=== PATIENT | female | born 1990 | race Caucasian/White ===

== ENCOUNTER 2019-06-23 11:30 | Inpatient (IN) | payer MEDICAID, SELFPAY ==
[2019-06-23 12:03] VITALS: BMI 28.5
[2019-06-23] MEDS: 0.9% Saline Lock 10 ML Syringe IV (13:00)
[2019-06-23 13:36] LABS: Absolute Lymphocyte Count 1.27 X10^3/uL (0.83-4.51); Absolute Neutrophil Count 14.3 X10^3/uL (2.0-7.7); Basophil# 0.04 X10^3/uL; Basophil% 0.2 % (0-1); Eosinophil# 0.03 X10^3/uL; Eosinophils% 0.2 % (0-5); Hematocrit 34.6 % (37-47); Hemoglobin 11.3 g/dL (12.0-15.0); Lymphocyte # 1.27 X10^3/ul (4.0); Lymphocyte % 7.8 % (19-41); Mean Corp Hgb Conc 32.7 g/dL (32-36); Mean Corpuscular Hgb 27.5 pg (27.0-32.0); Mean Corpuscular Volume 84.2 fL (81-99); Mean Platelet Vol. 12.1 fl (6.2-12.0); Monocyte# 0.62 X10^3/uL; Monocyte% 3.8 % (0-10); NRBC Flagged by Analyzer 0 % (0-5); Neutrophil % 87.4 % (47-70); Platelet Count 234 K/mm3 (150-450); RBC Distribution Width CV 15.1 % (11.6-14.6); RBC Distribution Width SD 46.3 fl (35.1-43.9); Red Blood Count 4.11 M/mm3 (4.2-5.4); White Blood Count 16.4 K/mm3 (4.4-11.0)
--- NOTE | 2019-06-23 20:32 | PCM.HP.OB ---
History Date of Admission: 06/23/19 Final ASMITA: 06/17/19 Gestational age: 40 Weeks and 6 Days History of this : This is a 28 year-old, @ 40 6/7 weeks presents in labor. No VB/LOF. Good FM. Allergies No Known Allergies Allergy (Verified 06/23/19 12:25) Home Medications: Home Medications Ergocalciferol [Vitamin D] 50,000 unit PO Q7D 06/23/19 Lysine 500 mg PO 06/23/19 Magnesium 250 mg PO 06/23/19 Selenium 100 mcg PO 06/23/19 Vitamin B Complex 1 ea PO 06/23/19 Vitamin K2 40 mcg PO 06/23/19 Smoking Status: Never smoker Number of Fetus(es): 1 NST - FHR Rate Baby A Baseline: normal History Past Pregnancies: Past Pregnancies Delivery Date Name GA/Weeks Outcome Route Weight Gender Labor Length Anesthesia Delivery Location Provider FOB Expected Delivery Method: Spontaneous Vaginal Review of Systems Constitutional: Denies: Chills, Fever Cardiovascular: Denies: Chest Pain Respiratory: Denies: Cough Neurological: Denies: Balance problems, Blurred vision Physical Exam General: Alert, Cooperative, No apparent distress Cardiovascular: Regular rate Lungs: Normal air movement Abdomen: Soft, Non-Distended, Gravid Extremities:: Other - 2+edema [employer] WORKER: Normal external genitalia Estimated gestational size: Appropriate for gestational size Presentation: Cephalic Assessment/Plan This is a 28 year-old, G1 @ 40 6/7 WEEKS GESTATION IN LABOR. EFW <4500 GM clinically, pelvis clinically adequate to expect vaginal delivery. GBS neg. Declines interventions for pain or for augmentation of labor. At this point labor has been progressing normally. Now SROM w/ MSF. Will notify peds for delivery. Continue expectant management for vaginal delivery. May have epidural/nubain/NO if desires.
--- NOTE | 2019-06-23 22:00 | NURSING ---
pt declined pitocin after delivery. aware
--- NOTE | 2019-06-23 22:28 | PCM.OPRPT ---
Vaginal Delivery Maternal Presentation: Active Labor Amniotic Membrane Rupture Type: Spontaneous Amniotic Fluid Description: Thick meconium Final ASMITA: 06/17/19 Final ASMITA Source: US <20 weeks Gestational age: 40 Weeks and 6 Days Date of Procedure: 06/23/19 Pre-Operative Diagnosis: labor Post-Operative Diagnosis: same Surgery/ Procedure Performed: Spontaneous Vaginal Delivery Type of Anesthesia: Local with 1% lidocaine - 20 cc Description of Procedure: A vigorous female infant was delivered JEFF over a second-degree perineal laceration. The remainder the was delivered with maternal pushing and gentle traction only in less than 15 seconds. Patient declined Pitocin infusion. She declined intramuscular Pitocin. The cord was clamped and cut after pulsations stopped. The was attended to by the waiting nursing staff. The placenta was delivered spontaneously and intact. The cervix and vagina were intact. 20 cc of 1% lidocaine were used to inject locally. The second-degree perineal laceration was repaired with 3-0 Vicryl suture in a running standard fashion. Sponge and needle counts were correct. A vaginal sweep was completed by me. Presentation: JEFF Placental Delivery Description: Spontaneous Placenta Disposition: [facility] Cord Vessel Description: 3 Vessels Cord Entanglement: None Drain: - - none Estimated Blood Loss: 300 Infant A gender: Female - Name: Liz (1 minute): 8 (5 minute): 9
[2019-06-24 04:05] VITALS: BP 106/62; PULSE 82; RESP 16; TEMP 36.3; O2SAT 96
--- NOTE | 2019-06-24 07:26 | PCM.PN.OB ---
Subjective: Denies complaints - Physical Exam General: Alert, Oriented x3 Abdomen: Soft, Non Tender, Non-Distended - ff mid & below umb Extremities: No Calf Tenderness Vital Signs Temp Pulse Resp BP Pulse Ox 97.3 F L 82 16 106/62 96 06/24/19 04:05 06/24/19 04:05 06/24/19 04:05 06/24/19 04:05 06/24/19 04:05 Oxygen Delivery Method Room Air Weight: 166 lb Body Mass Index (BMI) 28.5 Intake and Output for Last 24 Hours 06/22/19 06/23/19 06/24/19 23:59 23:59 23:59 Intake Total 1500 / 1500 Output Total 300 / 300 Balance 1500 / 1500 -300 / -300 Laboratory Tests Past 24 Hrs 06/23/19 06/23/19 13:15 13:15 WBC 16.4 H RBC 4.11 L Hgb 11.3 L Hct 34.6 L MCV 84.2 MCH 27.5 MCHC 32.7 RDW Std Deviation 46.3 H RDW Coeff of Cholo 15.1 H Plt Count 234 MPV 12.1 H Immature Gran % (Auto) 0.600 Neut % (Auto) 87.4 H Lymph % (Auto) 7.8 L Mccreary % (Auto) 3.8 Eos % (Auto) 0.2 Baso % (Auto) 0.2 Absolute Neuts (auto) 14.3 H Absolute Lymphs (auto) 1.27 Nucleated RBC % 0 Blood Type O POSITIVE Antibody Screen NEGATIVE Medical Necessity - Tobacco Use Smoking Status: Never smoker Assessment/Plan PPD#1 Routine care
[2019-06-24 08:00] VITALS: BP 111/53; PULSE 83; RESP 16; TEMP 36.5
[2019-06-24 12:00] VITALS: BP 110/71; PULSE 86; RESP 20; TEMP 36.1
[2019-06-24 16:30] VITALS: BP 125/78; PULSE 102; RESP 16; TEMP 36.3
[2019-06-24 20:26] VITALS: BP 121/68; PULSE 91; RESP 18; TEMP 36.2; O2SAT 98
--- NOTE | 2019-06-24 20:28 | NURSING ---
Patient refusing fundal check at this time. Patient educated on importance of fundal checks. Patient verbalizes understanding.
[2019-06-25 02:00] VITALS: BP 109/73; PULSE 66; RESP 16; TEMP 36.5
[2019-06-25 08:00] VITALS: BP 106/61; PULSE 61; RESP 16; TEMP 36.2; O2SAT 98
--- NOTE | 2019-06-25 08:35 | PCM.PN.OB ---
Subjective: pt seen at bedside, well. Patient denies any concerns at this time. Mild lochia. Voiding without difficulty. Breast-feeding going well. - Physical Exam General: Alert, Oriented x3 Abdomen: Soft, Non Tender, - - fundus firm Extremities: No Calf Tenderness Vital Signs Temp Pulse Resp BP Pulse Ox 97.7 F L 66 16 109/73 98 06/25/19 02:00 06/25/19 02:00 06/25/19 02:00 06/25/19 02:00 06/24/19 20:26 Oxygen Delivery Method Room Air Weight: 75.296 kg Body Mass Index (BMI) 28.5 Intake and Output for Last 24 Hours 06/23/19 06/24/19 06/25/19 23:59 23:59 23:59 Intake Total 1500 / 1500 Output Total 300 / 300 Balance 1500 / 1500 -300 / -300 Medical Necessity - Tobacco Use Smoking Status: Never smoker Assessment/Plan day #2, doing well Routine care RI home
--- NOTE | 2019-06-25 08:37 | DCINST_ITS ---
Discharge Diet: No Restrictions Discharge Activity: Return to Normal Activity, May not drive while taking narcotic pain medications., May Shower May resume sexual activity in: 4-6 weeks Additional Activity Instructions:: Nothing in the vagina for 4-6 weeks. You may return to work/school in 6 weeks. Call your doctor if your incision/area has: Continuous Slow Oozing, Sudden Increased Bleeding, Increased Pain/ Swelling, Increased Redness, Foul Smelling Discharge Additional Instructions: If you experience any of the following, contact your healthcare provider. * Bleeding that soaks a pad every hour for 2 hours * Fever 100.4 or higher * Unrelieved incision or abdominal pain * Swelling, redness, discharge or bleeding from your incision or episiotomy site * Your incision begins to separate * Problems urinating (including inability to urinate or burning while urinating). * Visual changes * Severe headache * Flu-like symptoms * Pain or redness in one of both of your breasts * Pain, warmth, tenderness or swelling in your legs, especially the calf area * Frequent nausea and vomiting * Symptoms of depression or anxiety If you experience any of the following, call 911 or go to the nearest Emergency Room. * Chest pain * Problems breathing * Seizure activity * Partial or complete paralysis of a body part, slurred speech, weakness or drooping of the face, or a sudden inability to walk or hold your balance Allergies/Adverse Reactions: Allergies No Known Allergies Allergy (Verified 06/23/19 12:25) Medications to take at Discharge Ergocalciferol [Vitamin D] 50,000 unit PO Q7D 06/23/19 Lysine 500 mg PO 06/23/19 Magnesium 250 mg PO 06/23/19 Selenium 100 mcg PO 06/23/19 Vitamin B Complex 1 ea PO 06/23/19 Vitamin K2 40 mcg PO 06/23/19 Naproxen [Naprosyn] 500 mg PO Q8H PRN PRN #30 tab 06/25/19 The following prescriptions were given: Naproxen [Naprosyn] 500 mg PO Q8H PRN PRN #30 tab PRN Reason: Mild Pain (-12/20) Transmission Status: Pending to [id number] When: Call to make an appointment with your doctor in 6 weeks. If you had elevated Blood Pressure or 4th degree laceration you will need to be seen in 2 weeks. Primary Care Physician: Care Physician,No Primary [Primary Care Provider] - Test Results: Test results from this visit will be discussed in further detail at your follow- up appointment, if applicable.
== END 2019-06-25 12:15 | disposition home or self-care (01) | DRG 560 ==
PROVIDERS: Admitting Provider Obstetrics & Gynecology; Referring Provider Obstetrics & Gynecology; Visit Provider Obstetrics & Gynecology
DX: O77.0 Labor and delivery complicated by meconium in amniotic fluid (principal); O70.1 Second degree perineal laceration during delivery; Z37.0 Single live birth; Z3A.40 40 weeks gestation of pregnancy
CPT/HCPCS: 59025; 59050; 85025; 86850; 86900; 86901; 99218; A4216; G0378

== ENCOUNTER → 2021-03-08 09:32 | Outpatient (CLI) | payer MEDICAID, SELFPAY ==
[2021-03-08 08:29] VITALS: BMI 28.5
[2021-03-08 10:03] LABS: Absolute Lymphocyte Count 1.62 X10^3/uL (0.83-4.51); Absolute Neutrophil Count 6.1 X10^3/uL (2.0-7.7); Basophil# 0.05 X10^3/uL; Basophil% 0.6 % (0-1); Eosinophil# 0.38 X10^3/uL; Eosinophils% 4.4 % (0-5); Hematocrit 38.5 % (37-47); Lymphocyte # 1.62 X10^3/ul (0.83-4.51); Lymphocyte % 18.7 % (19-41); Mean Corp Hgb Conc 33.8 g/dL (32-36); Mean Corpuscular Hgb 31.9 pg (27.0-32.0); Mean Corpuscular Volume 94.6 fL (81-99); Mean Platelet Vol. 10.3 fl (6.2-12.0); Monocyte# 0.55 X10^3/uL; Monocyte% 6.3 % (0-10); NRBC Flagged by Analyzer 0 % (0-5); Neutrophil # 6.05 X10^3/uL (2.7-7.7); Neutrophil % 69.8 % (47-70); POSITIVE MORPHOLOGY YES; Platelet Count 241 K/mm3 (150-450); RBC Distribution Width SD 44.8 fl (35.1-43.9); Red Blood Count 4.07 M/mm3 (4.2-5.4); White Blood Count 8.7 K/mm3 (4.4-11.0)
[2021-03-08 10:06] LABS: Differential Indicated SCAN CRITERIA MET
[2021-03-08 10:46] LABS: Rubella IgG Reactive (Nonreactive)
[2021-03-12 05:06] LABS: Chlamydia By Nucleic Acid AMP Negative (Negative)
[2021-03-12 07:16] LABS: Gonococcus By Nucleic Acid AMP Negative (Negative)
== END ==
PROVIDERS: Referring Provider Obstetrics & Gynecology; Visit Provider Obstetrics & Gynecology
DX: Z34.80 Encounter for supervision of other normal pregnancy, unspecified trimester (principal)
CPT/HCPCS: 36415; 85025; 86762; 86850; 86900; 86901; 87086; 87088; 87491; 87591

== ENCOUNTER → 2021-05-03 13:57 | Outpatient (CLI) | payer MEDICAID, SELFPAY ==
[2021-04-05 13:53] VITALS: BMI 28.5
[2021-05-03 11:41] VITALS: BMI 23.6
--- NOTE | 2021-05-03 14:02 | US_ITS ---
STUDY: SECOND AND THIRD TRIMESTER OBSTETRICAL ULTRASOUND REASON FOR EXAM: Female, 30 years old anatomy LMP: 12/20/2020. TECHNIQUE: Transabdominal and Transvaginal TECHNICAL QUALITY: Adequate. PRIOR ULTRASOUND: None. FINDINGS: There is a single intrauterine fetus. The fetus is in a cephalic presentation. There is demonstrated cardiac activity with a heart rate of 157 bpm. There is a normal amniotic fluid volume. The largest amniotic fluid pocket measures 4 cm. The amniotic fluid index (DWAIN) is within normal limits. The placenta is anterior in location and is not low lying. There are Grade 0 placental changes. The cervix measures 4.2 cm in length. The adnexal regions are not visualized. BIOMETRY: BPD: 4.59 cm: 19 weeks, 6 days HC: 16.73 cm: 19 weeks, 2 days AC: 13.94 cm: 19 weeks, 2 days FL: 3.08 cm: 19 weeks, 3 days CI: 81% FL/BPD: 67% FL/HC: FL/AC: 22% HC/AC: 1.2 age by current US: 19 weeks, 2 days. ASMITA by current US: 09/25/2021. Estimated weight: 296 grams, +/- 44 grams, 65 %. Age by LMP: 19 weeks, 1 days. ASMITA by LMP: 09/26/2021. ANATOMY: Gender: Male Cranium: Normal lateral ventricles. Normal choroid plexus. Normal cerebellum. Normal cisterna magna. Normal face, nose and lips. Chest: Normal 4-chamber heart. Abdomen/Pelvis: Normal diaphragm. Normal stomach. Normal abdominal wall. Normal cord insertion. Normal 3 vessel cord. Normal kidneys. Normal bladder. Spine: Normal cervical spine. Normal thoracic spine. Normal lumbar spine. Normal sacrum. Extremities: Normal bilateral upper extremities. Normal bilateral lower extremities. US/OB Anatomy Scan IMPRESSION: Single live uterine gestation with a mean gestational age of 19 weeks and 2 days. Electronically Signed: Danyel Bishop MD at 15:50 EDT , Service support ,
== END ==
PROVIDERS: Referring Provider Obstetrics & Gynecology; Visit Provider Obstetrics & Gynecology
DX: Z34.80 Encounter for supervision of other normal pregnancy, unspecified trimester (principal)
CPT/HCPCS: 76805; 76817

== ENCOUNTER → 2021-06-27 11:47 | Outpatient (CLI) | payer MEDICAID, SELFPAY ==
[2021-06-27 11:58] LABS: Absolute Lymphocyte Count 1.87 X10^3/uL (0.83-4.51); Absolute Neutrophil Count 7.4 X10^3/uL (2.0-7.7); Basophil# 0.04 X10^3/uL; Basophil% 0.4 % (0-1); Eosinophil# 0.12 X10^3/uL; Eosinophils% 1.2 % (0-5); Hemoglobin 11.2 g/dL (12.0-15.0); Lymphocyte # 1.87 X10^3/ul (0.83-4.51); Lymphocyte % 18.2 % (19-41); Mean Corpuscular Hgb 30.3 pg (27.0-32.0); Mean Corpuscular Volume 94.6 fL (81-99); Mean Platelet Vol. 10.5 fl (6.2-12.0); Monocyte# 0.68 X10^3/uL; Monocyte% 6.6 % (0-10); NRBC Flagged by Analyzer 0 % (0-5); Neutrophil # 7.41 X10^3/uL (2.7-7.7); Neutrophil % 72.1 % (47-70); Platelet Count 205 K/mm3 (150-450); RBC Distribution Width CV 12.7 % (11.6-14.6); RBC Distribution Width SD 43.8 fl (35.1-43.9); White Blood Count 10.3 K/mm3 (4.4-11.0)
== END ==
PROVIDERS: Referring Provider Obstetrics & Gynecology; Visit Provider Obstetrics & Gynecology
DX: Z34.80 Encounter for supervision of other normal pregnancy, unspecified trimester (principal)
CPT/HCPCS: 36415; 85025

== ENCOUNTER → 2021-08-07 15:59 | Outpatient (CLI) | payer MEDICAID, SELFPAY ==
[2021-08-07 17:05] LABS: ALB/GLOB Ratio 0.6 RATIO (0.9-2.4); AST(SGOT) 18 U/L (15-37); Alanine Aminotransfer ALT/SGPT 21 U/L (13-56); Albumin, Serum 2.8 g/dL (3.2-5.0); Alkaline Phosphatase 126 U/L (45-117); Anion Gap 12 (5-15); BUN 9 mg/dL (7-18); Calcium,Total 8.4 mg/dL (8.5-10.1); Chloride 102 mmol/L (98-107); Creatinine, Serum 0.53 mg/dL (0.55-1.02); EST Glomerular Filtration Rate 142 mL/min (>60); Est Glom Filt Rate - Afr Amer 172 mL/min (>60); Globulin 4.6 g/dL (2.2-4.2); Glucose 93 mg/dL (74-106); Potassium 3.2 mmol/L (3.5-5.1); Protein, Total 7.4 g/dL (6.4-8.2); Sodium Level 137 mmol/L (136-145)
== END ==
PROVIDERS: Referring Provider Nurse Practitioner Women's Health; Visit Provider Nurse Practitioner Women's Health
DX: L50.9 Urticaria, unspecified (principal)
CPT/HCPCS: 36415; 80053

== ENCOUNTER → 2021-08-17 12:11 | Outpatient (CLI) | payer MEDICAID, SELFPAY ==
[2021-08-17 13:42] LABS: ALB/GLOB Ratio 0.5 RATIO (0.9-2.4); AST(SGOT) 16 U/L (15-37); Alanine Aminotransfer ALT/SGPT 18 U/L (13-56); Albumin, Serum 2.2 g/dL (3.2-5.0); Alkaline Phosphatase 121 U/L (45-117); Anion Gap 6 (5-15); BUN 7 mg/dL (7-18); BUN/Creat Ratio 12.9 RATIO (10-20); Calcium,Total 8.5 mg/dL (8.5-10.1); Chloride 106 mmol/L (98-107); Creatinine, Serum 0.54 mg/dL (0.55-1.02); EST Glomerular Filtration Rate 138 mL/min (>60); Est Glom Filt Rate - Afr Amer 167 mL/min (>60); Globulin 4.2 g/dL (2.2-4.2); Glucose 68 mg/dL (74-106); Potassium 3.6 mmol/L (3.5-5.1); Protein, Total 6.4 g/dL (6.4-8.2); Sodium Level 137 mmol/L (136-145)
== END ==
PROVIDERS: Referring Provider Obstetrics & Gynecology; Visit Provider Obstetrics & Gynecology
DX: O26.619 Liver and biliary tract disorders in pregnancy, unspecified trimester (principal); K83.1 Obstruction of bile duct; Z3A.00 Weeks of gestation of pregnancy not specified
CPT/HCPCS: 36415; 80053

== ENCOUNTER → 2021-08-31 | Outpatient (CLI) | payer MEDICAID, SELFPAY | END | disposition home or self-care (01) | LOC: LABSPEC 14:08 | PROVIDERS: Visit Provider Obstetrics & Gynecology | DX: Z34.93 Encounter for supervision of normal pregnancy, unspecified, third trimester (principal) | CPT/HCPCS: 87077; 87081 ==

== ENCOUNTER → 2021-09-14 18:35 | Outpatient (CLI) | payer MEDICAID, SELFPAY ==
--- NOTE | 2021-09-14 18:36 | US_ITS ---
HISTORY: uterine size/date discrepancy EXAMINATION: US OB Limited 1 Or More Fetus TECHNIQUE: Transabdominal pelvic ultrasound was performed. Grayscale, spectral waveform, and color flow Doppler evaluation of the adnexa. COMPARISON: 05/03/21 with ASMITA 09/26/21 LMP: 12/20/20. Beta-hCG: Unknown. Provided EGA: 38 weeks 2 days. FINDINGS: INTRAUTERINE GESTATION(s): Single. ESTIMATED GESTATIONAL AGE: 37 weeks 2 days. ESTIMATED DUE DATE (ASMITA): 10/03/21. HEART MOTION is 166 bpm. AMNIOTIC FLUID INDEX (DWAIN): 10.2 cm. ESTIMATED WEIGHT: 3192 g or 7 lbs. 1 oz.. Percentile 41st%. BIOPHYSICAL PROFILE (BPP): not assessed. PRESENTATION: cephalic. PLACENTA: anterior. There is no placenta previa or abruption. CERVIX: The cervix is closed. Cervical length 2.0 cm US/OB Limited With Biometrics IMPRESSION: Single live intrauterine of 37 weeks 2 days. Concordant interval growth compared to prior study. at 2210 Reported and signed by: Rordi Tsang MD Electronically Signed: Rodri Tsang MD at 22:09 EST Tel , Service support ,
== END ==
PROVIDERS: PCP Family Medicine; Visit Provider Obstetrics & Gynecology
DX: O26.843 Uterine size-date discrepancy, third trimester (principal); Z3A.00 Weeks of gestation of pregnancy not specified
CPT/HCPCS: 76816

== ENCOUNTER 2021-09-26 06:30 | Inpatient (IN) | payer MEDICAID, SELFPAY ==
[2021-03-08 08:29] VITALS: BMI 28.5
[2021-09-26] VITALS (23 sets, daily range): BP systolic 84–131; BP diastolic 51–85; PULSE 67–95; RESP 15–18; TEMP 36.4–37.3; O2SAT 97–99; BMI 26.5
[2021-09-26] MEDS: 0.9% Saline Lock 10 ML Syringe IV (06:40)
[2021-09-26 06:55] LABS: Absolute Lymphocyte Count 3.73 X10^3/uL (0.83-4.51); Absolute Neutrophil Count 9.7 X10^3/uL (2.0-7.7); Basophil# 0.06 X10^3/uL; Basophil% 0.4 % (0-1); Eosinophil# 0.11 X10^3/uL; Eosinophils% 0.7 % (0-5); Hematocrit 35.5 % (37-47); Hemoglobin 11.2 g/dL (12.0-15.0); Lymphocyte # 3.73 X10^3/ul (0.83-4.51); Lymphocyte % 25.2 % (19-41); Mean Corp Hgb Conc 31.5 g/dL (32-36); Mean Corpuscular Hgb 26.5 pg (27.0-32.0); Mean Corpuscular Volume 83.9 fL (81-99); Monocyte# 0.97 X10^3/uL; Monocyte% 6.5 % (0-10); NRBC Flagged by Analyzer 0 % (0-5); Neutrophil # 9.67 X10^3/uL (2.7-7.7); Neutrophil % 65.4 % (47-70); Platelet Count 269 K/mm3 (150-450); RBC Distribution Width CV 14.5 % (11.6-14.6); RBC Distribution Width SD 43.8 fl (35.1-43.9); Red Blood Count 4.23 M/mm3 (4.2-5.4); White Blood Count 14.8 K/mm3 (4.4-11.0)
--- NOTE | 2021-09-26 07:09 | HP.PCM.OB_ITS ---
HPI - General General Date of Admission: 09/26/21 HPI Narrative MONTY MIXON, is a 30 F who presentsIAL and delivers precipitously without complication Maternal Data Information ASMITA Calculator Estimated Delivery Date Method Current WG Current Estimate 09/26/21 LMP (Certain) 40w 0d Other Estimates 09/20/21 Ultrasound #1 40w 6d PFSH PFSH Medical History Positive GBS test Home Medications ergocalciferol (vitamin D2) 50,000 unit PO Q7D 06/23/19 [History Last Taken Unknown] magnesium 250 mg PO 06/23/19 [History Last Taken Unknown] vitamin B complex 1 ea PO 06/23/19 [History Last Taken Unknown] vitamin K2 40 mcg PO 06/23/19 [History Last Taken Unknown] ursodiol 300 mg capsule 300 mg PO BID #60 cap 08/13/21 [Rx Last Taken Unknown] Allergy/AdvReac Type Severity Reaction Status Date / Time No Known Allergies Allergy Verified 09/26/21 06:13 Family History Grandfather Cancer lung Grandmother CVA (cerebral vascular accident) Diabetes Grandmother CVA (cerebral vascular accident) Hypertension Social History Smoking Status: Never smoker History 2 Elective abortions Hx Para 1 Spontaneous abortions Hx # Term Pregnancies Ectopic pregnancies Hx # Pregnancies Multiple births # of living children Past Pregnancies Del. Date Name GA/Weeks Outcome Route Bth Weight Infant Gen [facility] 06[facility]23/19 Liz 41 live - full term 6# 14 oz Female 20 hr no ne Eldoradolaura Morales Delivery Date: 06/23/19 1 degree tear Umm Prado Visit Details Expected Delivery Route/Plan Labor Preferences labor support person: alcides Jerez- planning deja labor intervention preferences: avoid arom and pitocin if able including post delivery pitocin. pain management options preferred: minimal intervention, IA, prefer cut cord/dad catch: no : yes PP control planned: nfp discussed possible routes of delivery and associated risks: [] special requests: [] Plans covid status: non immune counseled regarding risk of covid in vs vaccination and declined vaccination flu vaccine: declined tdap vaccine: declined rhogam: na LARC form signed: 06/27 - declines movement and labor precautions reviewed. Problem list reviewed and updated with the most current plan of care details and appropriate orders placed. Relevant counseling for the gestational age provided. Continue routine care and follow up unless otherwise noted in visit notes/problem list details OB Flowsheet Initial Weight: 130 lb Date -?-?-?-?-?-?-?-?-?-?-?-?- EGA Weight BP Urine Prot -?-?-?-?-?-?-?-?-?-?-?-?- Glucose FHR FuHt Pres Dilation -?-?-?-?-?-?-?-?-?-?-?-?- Effaced St Visit Note 03/08/21 -?-?-?-?-?-?-?-?-?-?-?-?- 11w 1d 129 lb (-16 oz) 100/68 -?-?-?-?-?-?-?-?-?-?-?-?- 160 -?-?-?-?-?-?-?-?-?-?-?-?- GP - CRL 47mm co nsistent with LMP. 04/05/21 -?-?-?-?-?-?-?-?-?-?-?-?- 15w 1d 134 lb (+4 lb) 100/64 Negative -?-?-?-?-?-?-?-?-?-?-?-?- Negative 150 -?-?-?-?-?-?-?-?-?-?-?-?- SM- no vb crampi ng 05/03/21 -?-?-?-?-?-?-?-?-?-?-?-?- 19w 1d 138 lb (+8 lb) 92/62 -?-?--?-?-?-?-?-?-?-?-?-?- 150 -?-?-?-?-?-?-?-?-?-?-?-?- SM- no vb crampi ng doing well. 05/31/21 -?-?-?-?-?-?-?-?-?-?-?-?- 23w 1d 142 lb (+12 lb) 104/58 Negative -?-?-?-?-?-?-?-?-?-?-?-?- Negative 150 23 -?-?-?-?-?-?-?-?-?-?-?-?- GP - no ctx, LOF , VB, Plan home BGT monitor instead of GCT. CBC next visit. GP - no ctx, LOF, VB, Plan h ome BGT monitor instead of GCT. CBC next visit. Discussed management of headaches. 06/27/21 -?-?-?-?-?-?-?-?-?-?-?-?- 27w 0d 144 lb (+14 lb) 100/70 -?-?-?-?-?-?-?-?-?-?-?-?- 145 27 -?-?-?-?-?-?-?-?-?-?-?-?- GP - no LOF, VB, DFM, ctx. Home BGTs reviewed and nl. CBC nl. LARC form signed. 07/18/21 -?-?-?-?-?-?-?-?-?-?-?-?- 30w 0d 147 lb 8 oz (+17 lb 8 oz) 120/80 Negative -?-?-?-?-?-?-?-?-?-?-?-?- Negative 135 30 -?-?-?-?-?-?-?-?-?-?-?-?- GP - no LOF, VB, DFM, ctx. Baby tachycardic - NST done in office GP - no LOF, VB, DFM, ctx. B [place] tachycardic initially - NST done in office and HR normalized 08/03/21 -?-?-?-?-?-?-?-?-?-?-?-?- 32w 2d 149 lb (+19 lb) 100/58 -?-?--?-?-?-?-?-?-?-?-?-?- 155 32 -?-?-?-?-?-?-?-?-?-?-?-?- Sm- no vb lof go od fm nro egular ctx 08/17/21 -?-?-?-?-?-?-?-?-?-?-?-?- 34w 2d 151 lb (+21 lb) Negative -?-?-?-?-?-?-?-?-?-?-?-?- Negative -?-?-?-?-?-?-?-?-?-?-?-?- 08/23/21 -?-?-?-?-?-?-?-?-?-?-?-?- 35w 1d 149 lb 6 oz (+19 lb 6 oz) 112/68 Negative -?-?-?-?-?-?-?-?-?-?-?-?- Negative 140 -?-?-?-?-?-?-?-?-?-?-?-?- JV- nst today fo r abdominal trauma. Toddler jumped on abdomen. Reactive. No uterine activity. 08/31/21 -?-?-?-?-?-?-?-?-?-?-?-?- 36w 2d 150 lb 8 oz (+20 lb 8 oz) 104/68 Negative -?-?-?-?-?-?-?-?-?-?-?-?- Negative 134 35 Cephalic 1 -?-?-?-?-?-?-?-?-?-?-?-?- 80 JV- GBS collected. Labor precautions discussed. 09/14/21 -?-?-?-?-?-?-?-?-?-?-?-?- 38w 2d 152 lb (+22 lb) 96/72 Negative -?-?-?-?-?-?-?-?-?-?-?-?- Negative 130 34 Cephalic -?-?-?-?-?-?-?-?-?-?-?-?- SM- no vb lof go od fm n oregular ctx SM- no vb lof good fm n oreg ular ctx, growth scan ordered due to low FH 09/21/21 -?-?-?-?-?-?-?-?-?-?-?-?- 39w 2d 154 lb 6 oz (+24 lb 6 oz) 92/58 Negative -?-?-?-?-?-?-?-?-?-?-?-?- Negative 130 36 Cephalic -?-?-?-?-?-?-?-?-?-?-?-?- SM- no vb lof go od fm nor egular ctx 09/26/21 -?-?-?-?-?-?-?-?-?-?-?-?- 40w 0d 154 lb 12.8 oz (+24 lb 12.8 oz) -?-?-?-?-?-?-?-?-?-?-?-?- -?-?-?-?-?-?-?-?-?-?-?-?- NST FHR Rate Baby A Baseline: 140 Variability:: Moderate Accelerations:: 15 x 15 Decelerations:: None FHR Category:: Category I Uterine Activity:: q3-5 ROS Constitutional Constitutional: Reports systems reviewed and no addt'l complaints, except as documented ENT HEENT: Reports systems reviewed and no addt'l complaints, except as documented Cardiovascular Cardiovascular: Reports systems reviewed and no addt'l complaints, except as documented Respiratory/Chest Respiratory/Chest: Reports systems reviewed and no addt'l complaints, except as documented Gastrointestinal Gastrointestinal: Reports systems reviewed and no addt'l complaints, except as documented and nausea; Denies abdominal pain Genitourinary Genitourinary: Reports systems reviewed and no addt'l complaints, except as documented, contractions Details: present and frequency (regular ) and movement Details: present Musculoskeletal Musculoskeletal: Reports systems reviewed and no addt'l complaints, except as documented Integumentary Integumentary: Reports as per HPI Neurologic Neurologic: Reports systems reviewed and no addt'l complaints, except as documented Endocrine Endocrinology: Reports systems reviewed and no addt'l complaints, except as documented Vital Signs Vital Signs Vital Signs: 09/26/21 06:22 09/26/21 07:08 Temperature 97.5 F L Pulse Rate 95 Pulse Ox 99 Weight Weight: 154 lb 12.8 oz Body Mass Index (BMI) 26.5 Physical Exam Const alert, oriented x3 and healthy appearing Constitutional Narrative: uncomfortable with contractions HEENT normocephalic and moist oral mucous membranes Head and Scalp: atraumatic Neck full ROM, no lymphadenopathy, supple and thyroid normal General: trachea midline Thyroid: thyroid normal Lymph Lymphatic: no lymphadenopathy noted Chest inspection of chest normal Resp normal respiratory effort Cardio regular rate GI normal to inspection, nondistended, normoactive bowel sounds, soft to palpation and non-tender Inspection: gravid external exam normal Bimanual Exam - Vag & Uterus: uterus non-tender Manual OB Exam: estimated gestational size appropriate, presentation cephalic, dilated, effaced and station Extremity normal to inspection General Extremity: Negative for edema Skin no rashes or lesions noted Neuro deep tendon reflexes 2+ bilaterally Motor Exam: strength 5/5 throughout and clonus absent Psych mental status grossly normal Labs Labs Labs: Blood Type O POSITIVE Antibody Screen NEGATIVE Hct 35.5 % (37-47) L Hgb 11.2 g/dL (12.0-15.0) L Pap Smear Negative Obstetrics US Rubella IgG Antibody Reactive (Nonreactive) Neisseria gonorrhoeae DNA (GREGORY) Negative (Negative) Rhogam given: No Miscellaneous Test Assessment & Plan (1) Supervision of other normal : COMMENT: PRR(SP labs) ASMITA 09/26/21 [place] Liz Spouse Solitario (2) : QUALIFIERS: Weeks of gestation: 39 weeks Qualified Code(s): Z3A.39 - 39 weeks gestation of COMMENT: Declines NIPT, ntd, and cassie screening. declines full panel but had CBC, T&S, rubella, urine culture. agrees to rest of panel at . nl anatomy (3) Urticaria: COMMENT: Bile acids normal (4) Low serum potassium: COMMENT: K+ Rx; repeat CMP in 2 weeks (5) Cholestasis during : COMMENT: RESOLVED, levels now normal (6) Positive GBS test: COMMENT: treat in labor (7) Uterine size-date discrepancy, third trimester: COMMENT: growth us normal 41st%; DWAIN 10.2 (8) Vaginal delivery: COMMENT: SM 39 boy Daniel PLAN: precipitous delivery
--- NOTE | 2021-09-26 07:10 | EX.PCM.OBRPT ---
Assessment & Plan (1) Supervision of other normal : COMMENT: PRR(SP labs) ASMITA 09/26/21 [place] Liz Spouse Solitario (2) : QUALIFIERS: Weeks of gestation: 39 weeks Qualified Code(s): Z3A.39 - 39 weeks gestation of COMMENT: Declines NIPT, ntd, and cassie screening. declines full panel but had CBC, T&S, rubella, urine culture. agrees to rest of panel at . nl anatomy (3) Urticaria: COMMENT: Bile acids normal (4) Low serum potassium: COMMENT: K+ Rx; repeat CMP in 2 weeks (5) Cholestasis during : COMMENT: RESOLVED, levels now normal (6) Positive GBS test: COMMENT: treat in labor (7) Uterine size-date discrepancy, third trimester: COMMENT: growth us normal 41st%; DWAIN 10.2 (8) Vaginal delivery: COMMENT: SM 39 boy Daniel Maternal Data Information ASMITA Calculator Estimated Delivery Date Method Current WG Current Estimate 09/26/21 LMP (Certain) 40w 0d Other Estimates 09/20/21 Ultrasound #1 40w 6d Vaginal Delivery Operative Information Pre-Operative Diagnosis: IAL Post-Operative Diagnosis: same Surgery / Procedure Performed: Spontaneous Vaginal Delivery Type of Anesthesia: Epidural Special Medications: none Estimated Blood Loss: 100 Fluids Replaced: crystalloid Findings Description of Procedure: Patient began pushing and delivered the head in the SJ presentation. The head was delivered atraumatically . The anterior and posterior shoulders delivered without complication followed by the rest of the and the was placed on the maternal abdomen. Delayed cord clamping was employed for approximately 60 seconds. Cord was clamped and cut and gentle traction was applied to the cord and the placenta delivered spontaneously immediately following it was noted to be intact with three-vessel cord. The perineum and vagina were inspected and noted to have a first degree perineal lac injected with lidocaine cleanserd with betadine and rpaired with 3-0 vicryl rapide in usual fashion. EBL was 100 cc. Patient and infant tolerated delivery well. Presentation: SJ Amniotic Membrane Rupture Type: Spontaneous Amniotic Fluid Description: Clear Placental Delivery Description: Spontaneous Placenta Disposition: [facility] Cord Vessel Description: 3 Vessels Cord Entanglement: None Delayed Cord Clamping: Yes Post Vaginal Delivery Medications Given After Delivery: IV Pitocin Episiotomy Description: None Laceration: Perineal Extension/lac and 1st degree Complication Complications: None Procedures Urinary/Genital [id number]: [id number] Vaginal Delivery [facility]
--- NOTE | 2021-09-26 07:11 | PCM.DC ---
Discharge Instructions Diet Discharge Diet: No restrictions Activity Discharge Activity: Return to Normal Activity, May Not Drive (while taking narcotic pain medications.) and May Shower May resume sexual activity in: 4-6 weeks Dressing / Incision Call your doctor if your incision/area has: Continuous Slow Oozing, Sudden Increased Bleeding, Increased Pain/ Swelling, Increased Redness and Foul Smelling Discharge Follow Up Care Please Follow Up With: Daily Dey MD When: Call [phone] to make an appointment with your doctor in 6 weeks. If you had elevated blood pressure or 4th degree laceration, you will need to be seen in 2 weeks. Test Results: Test results from this visit will be discussed in further detail at your follow-up appointment, if applicable. Discharge Plan Admission Admit Date/Time: 09/26/21 06:30 Primary Reason for Your Visit: vaginal delivery Attending Provider: Daily Dey Primary Care Provider: Care Physician,Beth Primary Discharge Orders/Prescriptions Prescriptions: No Action vitamin B complex 1 EACH tablet 1 ea PO RF: 0 magnesium 250 MG tablet 250 mg PO RF: 0 ergocalciferol (vitamin D2) 50,000 UNIT capsule 50,000 unit PO Q7D RF: 0 vitamin K2 40 MCG tablet 40 mcg PO RF: 0 ursodiol 300 mg capsule 300 mg PO BID Qty: 60 RF: 2 Referrals / Follow Up: Care Physician,No Primary [Primary Care Provider] - Disposition Disposition (needs filled in before D/C Order can be placed): Home, Self Care
[2021-09-26 08:46] LABS: Syphilis Antibodies Non-reactive
[2021-09-26 09:03] LABS: HIV - WCH Non-Reactive (Nonreactive); Hepatitis B Surface Antigen Non-Reactive (Nonreactive); Hepatitis C Antibody Non-Reactive (Nonreactive)
--- NOTE | 2021-09-27 02:15 | NURSING ---
report given to Mark Hoffman RN who is assuming care of pt at this time
[2021-09-27 03:00] VITALS: BP 102/55; PULSE 62; TEMP 36.1
[2021-09-27 03:01] VITALS: BP 102/55; PULSE 62; RESP 16; TEMP 36.1
--- NOTE | 2021-09-27 07:47 | PCM.PN.OB ---
Subjective Subjective Patient doing well without complaints. Tolerating PO. Ambulating and voiding without difficulty. Feeding well. Denies chest pain, shortness of breath, calf pain/swelling, fevers, chills, lightheadedness. Objective Data Objective Data Vital Signs: Vital Signs Temp Pulse Resp BP Pulse Ox 97 F L 62 16 102/55 L 98 09/27/21 03:01 09/27/21 03:01 09/27/21 03:01 09/27/21 03:01 09/26/21 23:05 Oxygen Delivery Method Room Air Weight: 154 lb 12.8 oz Body Mass Index (BMI) 26.5 Intake & Output: Intake and Output for Last 24 Hours 09/25/21 09/26/21 09/27/21 23:59 23:59 23:59 Output Total 1050 / 1050 Balance -1050 / -1050 Lab / Micro Data Result Diagrams: 09/26/21 06:40 Labs: Laboratory Results - last 24 hr 09/26/21 06:40: Blood Type O POSITIVE, Antibody Screen NEGATIVE 09/26/21 06:40: Syphilis Total Ab Non-reactive 09/26/21 06:40: Hep Bs Antigen Non-Reactive, Hepatitis C Antibody Non-Reactive, HIV 1&2 Antibody Non-Reactive Physical Exam Const alert and oriented x3 HEENT normocephalic Eyes PERRL Neck full ROM Resp normal respiratory effort GI soft to palpation GI Narrative: FF below U Assessment & Plan (1) Vaginal delivery: COMMENT: SM 37 boy Daniel PLAN: s/p PPD # 1 1. routine post delivery care 2. breast feeding- support given 3. rh positive 4. rubella immune 5. home today
[2021-09-27 08:51] VITALS: BP 95/54; PULSE 89; TEMP 36.8
[2021-09-27 08:52] VITALS: BP 95/54; PULSE 70; RESP 14; TEMP 37; O2SAT 97
== END 2021-09-27 09:34 | disposition home or self-care (01) | DRG 560 ==
LOC: WPOUT 06:31 → WP 06:31
PROVIDERS: Admitting Provider Obstetrics & Gynecology; Referring Provider Obstetrics & Gynecology; Visit Provider Obstetrics & Gynecology
DX: O99.824 Streptococcus B carrier state complicating childbirth (principal); Z37.0 Single live birth; L50.9 Urticaria, unspecified; O99.72 Diseases of the skin and subcutaneous tissue complicating childbirth; Z3A.39 39 weeks gestation of pregnancy; O70.0 First degree perineal laceration during delivery
CPT/HCPCS: 59025; 59050; 85025; 86703; 86780; 86803; 86850; 86900; 86901; 87340; 99218; A4216; G0378

== ENCOUNTER 2021-11-29 09:03 | Outpatient (CLI) | payer MEDICAID, SELFPAY ==
[2021-12-03 18:04] LABS: HPV APTIMA, High Risk Negative (Negative)
== END 2021-11-29 23:59 | disposition home or self-care (01) ==
LOC: LABSPEC 11-30 09:04
PROVIDERS: Visit Provider Obstetrics & Gynecology
DX: Z12.4 Encounter for screening for malignant neoplasm of cervix (principal)
CPT/HCPCS: 87624; 88175; G0145